=== PATIENT | male | born 1990 | race Caucasian/White ===

== ENCOUNTER 2021-08-31 08:29 | Outpatient (CLI) | payer BC, SELFPAY ==
--- NOTE | 2021-08-31 11:00 | NEURO_ITS ---
Impression: # Complains of left wrist pain. # Evolving left Carpal Tunnel Syndrome. # No ulnar neuropathy. # Needle/EMG exam not requested. Nerve Conduction Studies Anti Sensory Summary Table Stim Site NR Peak (ms) P-T Amp (?V) Site1 Site2 Delta-P (ms) Dist (cm) Delfino (m/s) Left Median Anti Sensory (2-3nd Digit) Wrist 2.8 70.8 Wrist 2-3nd Digit 2.8 14.0 50 Wrist 2.8 74.5 Wrist 2-3nd Digit 2.8 14.0 50 Left Radial Anti Sensory (Base 1st Digit) Wrist 1.8 35.3 Wrist Base 1st Digit 1.8 0.0 Left Ulnar Anti Sensory (5th Digit) Wrist 2.4 58.7 Wrist 5th Digit 2.4 14.0 58 Motor Summary Table Stim Site NR Onset (ms) O-P Amp (mV) Site1 Site2 Delta-0 (ms) Dist (cm) Delfino (m/s) Left Median Motor (Abd Poll Brev) Wrist 3.4 3.2 Elbow Wrist 4.9 26.0 53 Elbow 8.3 3.6 Left Ulnar Motor (Abd Dig Minimi) Wrist 2.3 8.2 A Elbow Wrist 4.7 30.0 64 A Elbow 7.0 7.2 F Wave Studies NR F-Lat (ms) L-R F-Lat (ms) Left Median (Mrkrs) (Abd Poll Brev) 29.51 Left Ulnar (Mrkrs) (Abd Dig Min) 28.36 MTDD
== END 2021-08-31 08:30 | disposition home or self-care (01) ==
PROVIDERS: PCP Family Medicine Adolescent Medicine; Visit Provider Physician Assistant
DX: G56.02 Carpal tunnel syndrome, left upper limb (principal)
CPT/HCPCS: 95909

== ENCOUNTER 2022-03-21 16:00 | Emergency (ER) | payer BC, SELFPAY ==
--- NOTE | ~2022-03-21 | XR_ITS ---
EXAMINATION: XR chest 2V DATE: 03/21/2022 16:37 INDICATION: Central chest pain. TECHNIQUE: Frontal and lateral views of the chest were obtained on 3 radiographs. COMPARISON: None. FINDINGS: There is mild scarring at left lung apex. No pleural effusion or pneumothorax. The heart si ze is normal. IMPRESSION: 1. Mild scarring at left lung apex. Reviewed, dictated and finalized at location B.
[2022-03-21 16:05] VITALS: BP 138/94; PULSE 77; RESP 20; TEMP 37.1; O2SAT 97
--- NOTE | 2022-03-21 16:08 | ED.CHESTPAIN ---
HPI - Chest Pain General Chief Complaint: Chest Pain Stated Complaint: Chest pain Time Seen by Provider: 03/21/22 16:08 Source: patient and RN notes reviewed Mode of arrival: ambulatory Limitations: no limitations History of Present Illness complaint: chest pain Onset (ago): day(s) (2) Timing of current episode: constant Prior episodes: No Onset: during rest and after eating Pain location: epigastric Pain radiation: none Severity: moderate Quality: burning Relieving factors: nothing Exacerbating factors: eating Associated symptoms: nausea Treatment prior to arrival: none Risk Factors Coronary artery disease risk factors: smoking history Thoracic aortic dissection risk factors: none Related Data Allergies Allergy/AdvReac Type Severity Reaction Status Date / Time No Known Allergies Allergy Verified 03/21/22 17:14 Review of Systems Review of Systems: All systems reviewed & are unremarkable except as noted in HPI and below Constitutional: Constitutional: Denies chills and Denies fever(s) Respiratory: Respiratory: Denies cough and Denies dyspnea Gastrointestinal: Gastrointestinal: Denies melena, Reports change in stool character ( yellow for the last 2 days), Denies constipation, Denies diarrhea and Denies vomiting PMFSH Past Medical History Medical History (Updated 03/21/22 @ 17:30 by Shree Segura MD) No active medical problems Surgical History Surgical History (Updated 03/21/22 @ 16:35 by Shree Segura MD) No pertinent past surgical history Social History Social History (Updated 03/21/22 @ 16:36 by Shree Segura MD) Smoking packs per day: 1 Smoking cigarettes per day: 20.0 Smoking status: Current every day smoker Alcohol intake: current Alcohol use details: occasional Substance use: current Substance use type: marijuana and crack/cocaine Other substance usage details: occasional Last use: last used cocaine 1 month ago Exam Const: General: healthy appearing, no acute distress and alert Nutritional Appearance: well nourished and thin Orientation/consciousness: patient oriented x3 HENMT: Head: normal to inspection Ears: external ears normal Face and sinus: normal facial exam Mouth: Yes moist mucous membranes Eyes: Conjunctivae: conjunctivae normal Pupils: Equal, round and reactive pupils present EOM: EOMs intact bilaterally Neck: Neck: normal visual inspection Resp: Effort & Inspection: normal respiratory effort Auscultation: clear to auscultation bilaterally Cardio: Rate: regular rate Rhythm: regular rhythm GI: GI Palp: Yes Soft to palpation, Yes Tenderness to palpation present (GI) ( mild epigastric moderate right upper quadrant) and Yes Guarding due to palpation present (GI) ( With positive Rider's sign) Auscultation: normal bowel sounds Back/Spine/Pelvis: Cervical Spine: cervical ROM normal Thoracic/Lumbar Spine: thoraco-lumbar ROM normal Skin: General skin exam: normal color Rashes: no rashes Neuro: General: patient oriented x3, moves all extremities, no focal motor deficits and CN's II-XI intact bilaterally Speech: normal speech Gait exam (Neuro): Normal gait present Extrem: General: normal to inspection and no clubbing, cyanosis or edema Psych: Appearance: grossly normal and well kempt Mental Status: mental status grossly normal Affect: normal affect Attitude: cooperative Thought content: Yes Normal thought content present Course Vital Signs Vital signs: Vital Signs Temperature 37.1 C 03/21/22 16:05 Pulse Rate 77 03/21/22 16:05 Respiratory Rate 20 03/21/22 16:05 Blood Pressure 138/94 H 03/21/22 16:05 Pulse Oximetry 97 03/21/22 16:05 Temperature 36.1 C L 03/21/22 17:26 Pulse Rate 64 03/21/22 17:26 Respiratory Rate 20 03/21/22 17:26 Blood Pressure 135/94 H 03/21/22 17:26 Pulse Oximetry 97 03/21/22 17:26 MDM - Chest Pain Differential Diagnosis Differential diagnosis: Likely atypical chest pain,
--- NOTE | 2022-03-21 16:13 | ECG_ITS ---
Measurements Intervals Simpson Rate: 68 P: 30 AK: 135 QRS: 72 QRSD: 84 T: 49 QT: 397 QTc: 425 Interpretive Statements SINUS RHYTHM WITH SINUS ARRHYTHMIA MINIMAL Q WAVES- INFERIOR LEADS BORDERLINE ECG Electronically Signed On 03-21-2022 16:18:50 CDT by Mich Young D.O.
[2022-03-21 16:38] LABS: Basophils Absolute Auto 0.05 K/mm3 (0.00-0.10); Basophils Percent Auto 0.5 % (0.0-1.0); Eosinophils Percent Auto 2.2 % (1.0-6.0); Hematocrit 44.8 % (40.0-54.0); Hemoglobin 15.9 g/dL (14.0-18.0); Immature Granulocyte Absolute 0.02 K/mm3 (0.00-0.00); Immature Granulocyte Percent A 0.2 % (0.0-0.0); Lymphocytes Absolute Auto 2.54 K/mm3 (1.10-4.50); Lymphocytes Percent Auto 27.6 % (18.0-42.0); Mean Corpuscular HGB Conc 35.5 g/dL (32.0-36.0); Mean Corpuscular Hemoglobin 33.3 pg (27.0-31.0); Mean Corpuscular Volume 93.9 fL (78.0-102.0); Mean Platelet Volume 9.6 fl (8.7-11.0); Monocytes Absolute Auto 0.81 K/mm3 (0.10-0.90); Monocytes Percent Auto 8.8 % (2.0-11.0); Neutrophils Absolute Auto 5.6 K/mm3 (1.7-7.2); Neutrophils Percent Auto 60.7 % (50.0-70.0); Platelet Count Result 282 K/mm3 (150-420); Red Blood Count 4.77 M/mm3 (4.70-6.10); Red Cell Distribution Width 11.9 % (11.6-14.4); White Blood Count 9.2 K/mm3 (4.8-10.8)
[2022-03-21 16:47] LABS: Prothrombin Time 10.7 Seconds (9.50-12.10)
[2022-03-21] MEDS: ASPIRIN 81 MG CHEWABLE TABLET 324 MG PO (16:52)
[2022-03-21 16:56] LABS: Alanine Aminotransferase 17 U/L (16-63); Albumin Level 3.7 g/dL (3.4-5.0); Alkaline Phosphatase 69 U/L (46-116); Anion Gap 10 mmol/L (8-16); Aspartate Amino Transferase 12 U/L (15-37); Bilirubin,Total 0.5 mg/dL (0.00-1.00); Blood Urea Nitrogen 10 mg/dL (7-18); Calcium 8.8 mg/dL (8.5-10.1); Carbon Dioxide 26 mmol/L (21-32); Chloride 102 mmol/L (98-108); Estimated Glomerular Filt Rate > 60; Glucose 99 mg/dL (70-99); Osmolality Calculated 285 mOsm/kg (285-295); Potassium 3.5 mmol/L (3.5-5.1); Sodium 138 mmol/L (136-145); Total Protein 6.9 g/dL (6.4-8.2); Troponin I 5.8 ng/L (0.00-60.4)
[2022-03-21 16:58] LABS: CRP < 0.2 mg/dL (0.0-0.9); Lipase 72 U/L (73-393)
[2022-03-21 17:03] VITALS: PULSE 71
[2022-03-21 17:04] LABS: Magnesium 2.1 mg/dL (1.8-2.4)
[2022-03-21] MEDS: MAG HYDROX/ALUMINUM HYD/SIMETH 30 ML, PHENobarb/HYOSCY/ATROPINE/SCOP 32.4 MG, LIDOCAINE... PO (17:11)
[2022-03-21 17:26] VITALS: BP 135/94; PULSE 64; RESP 20; TEMP 36.1; O2SAT 97
== END 2022-03-21 17:45 | disposition home or self-care (01) ==
PROVIDERS: Emergency Provider Emergency Medicine; PCP Physician Assistant
DX: K80.50 Calculus of bile duct without cholangitis or cholecystitis without obstruction (principal)
CPT/HCPCS: 36415; 71046; 80053; 83690; 83735; 84484; 85025; 85610; 86140; 93005; 99284; A9270

== ENCOUNTER 2022-03-22 09:49 | Outpatient (CLI) | payer BC, SELFPAY ==
--- NOTE | ~2022-03-22 | US_ITS ---
EXAMINATION: US right upper quadrant DATE: 03/22/2022 10:08 INDICATION: Abdominal pain. TECHNIQUE: Multiple grayscale and Doppler ultrasound images of the abdomen were obtained. COMPARISON: None FINDINGS: The visualized portions of the head and body of the pancreas are normal. The liver is ilsa l without focal lesion. No liver surface nodularity. There is normal flow in main portal vein. The ga llbladder is normal in size. No gallstones or gallbladder wall thickening. There was no sonographic M urphy sign. The common duct is normal and measures 4 mm. IMPRESSION: 1. Normal right upper quadrant ultrasound. Reviewed, dictated and finalized at location B.
== END 2022-03-22 09:50 | disposition home or self-care (01) ==
LOC: CHSIMG 09:50
PROVIDERS: PCP Physician Assistant; Visit Provider Emergency Medicine
DX: R10.9 Unspecified abdominal pain (principal)
CPT/HCPCS: 76705

== ENCOUNTER 2024-12-08 05:47 | Emergency (ER) | payer BC, SELFPAY ==
--- NOTE | ~2024-12-08 | XR_ITS ---
Right Shoulder Technique: AP and scapular Y views were obtained. Clinical History: Pain Findings: No fracture or dislocation is seen. Osseous alignment is anatomic. The glenohumeral and acr omioclavicular joint spaces are preserved. Soft tissues are unremarkable. Impression: Unremarkable right shoulder radiographs. Reviewed, dictated and finalized at [facility]. ER COAT PAINTER Impression: Unremarkable right shoulder radiographs.
[2024-12-08 05:49] VITALS: BP 148/94; PULSE 96; RESP 18; TEMP 36; O2SAT 98
--- NOTE | 2024-12-08 06:41 | ED_ITS ---
HPI - Extremity Injury (Upper) General Chief Complaint: Extremity Injury, Upper Stated Complaint: upper extremity injury Time Seen by Provider: 12/08/24 05:52 Source: patient Mode of arrival: ambulatory Limitations: no limitations History of Present Illness HPI narrative: patient is a 34-year-old male with a right shoulder pain for the past week. No injury to this area. No cervical spine pain. Trapezius area muscle pain. He has seen a chiropractor. He also has numbness of the right hand specifically to the 4th digit half way and not including the pinky. He has carpal tunnel on the left. complaint: injury to: right and shoulder ( right /no injury) Onset (ago): week(s) (1) Other Extremity Injury: Right: hand ( numbness) Other injuries: none Place: home Severity: moderate Severity scale (1-10): 5 Relieving factors: immobilization Exacerbating factors: movement of extremity Context: other ( no injury) Associated symptoms: denies other symptoms Treatments prior to arrival: other ( chiropractor) Related Data Allergies Allergy/AdvReac Type Severity Reaction Status Date / Time No Known Allergies Allergy Verified 12/08/24 06:01 Review of Systems Review of Systems: All systems reviewed & are unremarkable except as noted in HPI and below Constitutional: Constitutional: Reports no additional constitutional complai nts Eyes: Eyes: Reports no additional eye complaints ENT: Reports system reviewed and no additional complaints, except as documented Cardiovascular: Cardiovascular: Reports no additional cardiovascular complaints Respiratory: Respiratory: Reports no additional respiratory complaints Gastrointestinal: Gastrointestinal: Reports no additional gastrointestinal complaints Genitourinary: Genitourinary: Reports no additional male genitourinary complaints Musculoskeletal: Musculoskeletal: Reports no additional musculoskeletal complaints Integumentary/Breasts: Skin/Breast: Reports system reviewed and no additional complaints, except as docu Neurologic: Reports system reviewed and no additional complaints, except as documented Psychiatric: Psychiatric: Reports no additional psychiatric complaints Endocrine: Endocrine: Reports no additional endocrine complaints Hematologic/Lymphatic: Hematologic/Lymphatic: Reports no additional hematologic/lymphatic complaints Allergic/Immunologic: Allergic/Immunologic: Reports no additional allergic/immunologic complaints PMFSH Past Medical History Medical History No active medical problems Surgical History Surgical History No pertinent past surgical history Social History Social History Smoking packs per day: 1 Smoking cigarettes per day: 20.0 Smoking status: Current every day smoker Tobacco type: cigarettes Second hand tobacco smoke exposure: Yes Alcohol intake: current Alcohol use details: occasional Substance use: never Substance use type: does not use Living arrangements: with family Occupation/Education: occupation Gender identity (if verbalized by the patient): Male Sexual Orientation (if Verbalized by the Patient): Straight or Heterosexual Spiritual care concerns: No Agree to blood products: Yes Exam Const: General: healthy appearing Nutritional Appearance: well nourished Orientation/consciousness: patient oriented x3 HENMT: Head: normal to inspection Ears: external ears normal Face/Nose/Sinus: Normal external nose present Eyes: Conjunctivae: conjunctivae normal Pupils: Equal, round and reactive pupils present EOM: EOMs intact bilaterally Neck: Neck: normal visual inspection Chest: Chest palpation & inspection: normal inspection of the chest Resp: Effort & Inspection: normal respiratory effort and not labored Auscu ltation: clear to auscultation bilaterally and no crackles Cardio: Rate: regular rate Rhythm: regular rhythm Heart sounds: no murmurs GI: Inspection: non-distended GI Palp: Yes Soft to palpation and No Tenderness to palpation present (GI) Auscultation: normal bowel sounds : General: Yes bladder normal to palpation Back/Spine/Pelvis: Back: no CVA tenderness Skin: General skin exam: normal color Rashes: no rashes Wounds: no wounds Neuro: General: patient oriented x3 Cranial nerves: Yes Nystagmus not present Speech: normal speech Gait exam (Neuro): Normal gait present Other: Tinel sign positive on the right wrist to correlate with carpal tunnel syndrome on the right Extrem: General: normal to inspection and no clubbing, cyanosis or edema Other: tender right trapezius shoulder muscle but not the right shoulder joint or the cervical spine Psych: Mental Status: mental status grossly normal Affect: normal affect Course Vital Signs Vital signs: Vital Signs Temperature 36.0 C L 12/08/24 05:49 Pulse Rate 96 12/08/24 05:49 Respiratory Rate 18 12/08/24 05:49 Blood Pressure 148/94 H 12/08/24 05:49 Pulse Oximetry 98 12/08/24 05:49 Oxygen Delivery Room Air 12/08/24 05:49 Temperature 36.0 C L 12/08/24 05:49 Pulse Rate 96 12/08/24 05:49 Respiratory Rate 18 12/08/24 05:49 Blood Pressure 148/94 H 12/08/24 05:49 Pulse Oximetry 98 12/08/24 05:49 Oxygen Delivery Room Air 12/08/24 05:49 MDM - Extremity Injury (Upper) MDM Narrative Medical decision making narrative: patient is a 34-year-old male with right shoulder region pain of the trapezius mostly and numbness of the right hand. We will check an x-ray. Imaging Data Attestation: I personally reviewed and interpreted this imaging study as follows: Radiologist's impression: Right shoulder x-ray is negative for acute process per my initial read Discharge Plan Discharge Clinical Impression: Carpal tunnel syndrome of right wrist Nontraumatic shoulder pain Qualifiers: Laterality: right Qualified Code(s): M25.511 - Pain in right shoulder Patient Disposition: Home, Self-Care Condition: Stable Instructions: Carpal Tunnel Syndrome (DC), Shoulder Pain (ED) Additional Instructions: please follow-up with the primary doctor in the next week. Further testing can be done on the shoulder and wrist. Patient Language: Tamazight Prescriptions: New prednisone 20 mg tablet 40 mg PO DAILY 4 Days Qty: 8 0RF carisoprodol [Soma] 350 mg tablet 350 mg PO TID PRN (Reason: muscle pain) Qty: 20 0RF No Action pantoprazole 40 mg tablet,delayed release (DR/EC) 40 mg PO QAM Qty: 90 2RF clonazepam 0.5 mg tablet 0.25 mg PO QHS Qty: 30 2RF Rx Instructions: administer 30 minutes before bedtime diclofenac sodium 75 mg tablet,delayed release (DR/EC) 75 mg PO BID Qty: 180 1RF Follow-up/Referrals: Mango Marin MD [Primary Care Provider] - Stand Alone Forms: Work/School Release IP Time of Disposition: 06:59
[2024-12-08] MEDS: KETOROLAC (*BKC) 60 MG/2 ML VIAL IM (07:13)
== END 2024-12-08 07:21 | disposition home or self-care (01) ==
PROVIDERS: Emergency Provider Emergency Medicine; PCP Family Medicine Adolescent Medicine
DX: G56.01 Carpal tunnel syndrome, right upper limb (principal); M25.511 Pain in right shoulder
CPT/HCPCS: 73030; 96372; 99283; J1885

== ENCOUNTER 2024-12-11 10:27 | Outpatient (CLI) | payer BC, SELFPAY ==
--- NOTE | ~2024-12-11 | XR_ITS ---
Cervical Spine: AP, lateral, open-mouth views Clinical History: Pain Findings: The normal lordotic curve is maintained. The vertebral bodies and posterior elements appea r intact. The intervertebral disc spaces are well maintained. Pre-vertebral soft tissues are unremar kable. Impression: No significant abnormality is seen. Reviewed, dictated and finalized at [facility]. O ASSEMBLER Impression: No significant abnormality is seen.
== END 2024-12-11 10:28 | disposition home or self-care (01) ==
LOC: MICIMG 10:28
PROVIDERS: PCP Family Medicine Adolescent Medicine; Visit Provider Nurse Practitioner Family
DX: M54.12 Radiculopathy, cervical region (principal)
CPT/HCPCS: 72040